=== PATIENT | female | born 1930 | race Caucasian/White ===

== ENCOUNTER 2018-07-23 12:06 | Day surgery (SDC) | payer BC, OTHER ==
[~2018-07-23] VITALS: Ht 154.9 cm; Wt 81.5 kg
[2018-07-23 13:21] VITALS: Ht 154.9 cm; Wt 81.5 kg
[2018-07-23] MEDS ORDERED: calcium PO (13:43)
[2018-07-23] MEDS ORDERED: glucosamine PO (13:43)
[2018-07-23] MEDS ORDERED: vitamin D PO (13:43)
[2018-07-23] MEDS ORDERED: omega 3 PO (13:43)
[2018-07-23 13:48] VITALS: BP 134/83; PULSE 65; RESP 20
[2018-07-23 14:30] VITALS: BP 106/56; PULSE 68; RESP 16
[2018-07-23] MEDS ORDERED: FENTAnyl 50 MCG/ML VIAL ONE (14:43)
[2018-07-23] MEDS ORDERED: MIDAZOLAM 1 MG/ML 2 ML INJ ONE ×2 (14:43)
[2018-07-23 14:45] VITALS: BP 103/50; PULSE 64; RESP 18
[2018-07-23 15:00] VITALS: BP 99/53; PULSE 68; RESP 15
== END 2018-07-23 17:58 | disposition home or self-care (01) ==
LOC: GIL 12:06
PROVIDERS: ATTEND Internal Medicine Gastroenterology
DX: Z12.11 Encounter for screening for malignant neoplasm of colon (principal); D12.2 Benign neoplasm of ascending colon; K64.8 Other hemorrhoids; Q27.33 Arteriovenous malformation of digestive system vessel
CPT/HCPCS: 45380; 88305; J2250; J3010